=== PATIENT | female | born 1955 | race Caucasian/White ===

== ENCOUNTER → 2017-11-15 | Outpatient (CLI) | payer OTHER ==
[~2017-11-15] MED LIST: ATR10 PO; DESV50 PO; DOC100 PO; ESTR-25 PO; HYDR-2946 PO; LAMO150T36 PO; METH1TAB65 PO; ONDA4TAB PO; PER PO; PHENA200 PO; POTA20TA10 PO; PROM25S PR; TAM4 PO; TOLT4CAP13 PO; VORT10TA PO
== END ==
LOC: LAB 11:16
PROVIDERS: ATTEND Urology
DX: N39.0 Urinary tract infection, site not specified (principal); B96.89 Other specified bacterial agents as the cause of diseases classified elsewhere
CPT/HCPCS: 81001; 87077; 87088

== ENCOUNTER → 2017-11-29 | Outpatient (CLI) | payer OTHER | LOC: CT 13:38 | PROVIDERS: ATTEND Urology | DX: Z02.9 Encounter for administrative examinations, unspecified (principal) ==

== ENCOUNTER → 2017-12-01 | Outpatient (CLI) | payer OTHER ==
--- NOTE | 2017-12-01 10:04 | RADIOLOGY IMAGING REPORT ---
FACILITY: [facility] PATIENT NAME: Daiana Cortez : 1955 MR: [id number] V: [id number] EXAM DATE: ORDERING PHYSICIAN: NANCY ALMEIDA TECHNOLOGIST: Location: [facility] Patient: Daiana Cortez : 1955 Visit/Account:[id number] Date of Sevice: 12/01/2017 EXAMINATION: CT ABDOMEN AND PELVIS WITHOUT CONTRAST COMPARISON: None. HISTORY: Stones. PROCEDURE: Multiplanar noncontrast CT of the abdomen and pelvis. One of the following dose optimizati on techniques was utilized in the performance of this exam: Automated exposure control; adjustment of the mA and/or kV according to the patient's size; or use of an iterative reconstruction technique. Specific details can be referenced in the facility's radiology CT exam operational policy. FINDINGS: Evaluation of the solid and viscus parenchymal organs and vascular structures is limited wi thout the benefit of IV contrast. Visualized thorax: There are a few benign calcified granuloma in the right lower lobe. No evidence of acute disease in the visualized lower thorax. Liver: Incompletely characterized nearly isodense 2.1 x 3.5 x 2.0 cm lobular soft tissue mass along t he posterior right hepatic lobe. Gallbladder and biliary system: Cholecystectomy. Common bile duct is within normal limits. Spleen: Spleen size is normal. Pancreas: Noncontrast imaging of the pancreas is within normal limits. Adrenal glands: Negative. Kidneys and bladder: No radiopaque urolithiasis or evidence of an obstructive uropathy. Urinary bladd er is unremarkable. Vessels: Aortoiliac mild atherosclerosis. No aneurysm. Bowel and mesentery: Tiny hiatal hernia. No gastric distention. No small bowel obstruction. Appendix is within normal limits. Small amount of stool in the colon. Pancolonic mild diverticulosis. No bowel or mesenteric inflammation. Pelvic organs: Age-appropriate. Lymph nodes: No adenopathy. Free air/free fluid: None. Abdominal wall and osseous structures: Small fat-containing right inguinal hernia. Mild degenerative change throughout the osseous structures. No acute osseous abnormality. IMPRESSION: 1. No radiopaque urolithiasis or evidence of an obstructive uropathy. 2. No noncontrast CT findings of acute disease in the abdomen or pelvis. 3. Posterior right hepatic lobe incompletely characterized 2.1 x 3.5 x 2.0 cm lobular soft tissue mas s. Further evaluation by MRI with and without contrast is recommended. Report Dictated By: Nick Skinner MD at 12/01/2017 9:37 AM Report E-Signed By: Nick Skinner MD at 12/01/2017 10:00 AM WSN:[id number]
== END ==
LOC: CT 08:47
PROVIDERS: ATTEND Urology
DX: K40.90 Unilateral inguinal hernia, without obstruction or gangrene, not specified as recurrent (principal); K44.9 Diaphragmatic hernia without obstruction or gangrene; R16.0 Hepatomegaly, not elsewhere classified; I25.10 Atherosclerotic heart disease of native coronary artery without angina pectoris; Z90.49 Acquired absence of other specified parts of digestive tract; R91.8 Other nonspecific abnormal finding of lung field
CPT/HCPCS: 74176

== ENCOUNTER 2017-12-03 14:05 | Outpatient (RCR) | payer OTHER ==
--- NOTE | 2017-12-07 09:26 | RADIOLOGY IMAGING REPORT ---
FACILITY: [facility] [place] PATIENT NAME: Daiana Cortez : 1955 MR: [id number] V: [id number] EXAM DATE: ORDERING PHYSICIAN: NANCY ALMEIDA TECHNOLOGIST: [place] [facility] [place]: Daiana Cortez : 1955 Visit/Account:[id number] Date of Sevice: 12/07/2017 ABDOMEN W W/O CONTRAST HISTORY: Indeterminant hepatic mass identified at recent CT. TECHNIQUE: Multiplanar multisequence magnetic resonance imaging of the abdomen without and with intr avenous contrast. CONTRAST: 15 mL MultiHance IV COMPARISON: CT 12/01/2017, CT 05/30/2012 FINDINGS: Visualized lung bases: Negative. Liver: Along the medial margin of the posterior segment right lobe and corresponding with findings o n recent CT is a 2.2 x 3.8 cm lesion, heterogeneous and somewhat nonuniform but primarily T2 hyperint ense and T1 hypointense. Following contrast administration, this demonstrates primarily peripheral a nd slightly progressive though not classically nodular enhancement. Several small hepatic cysts. Gallbladder: Surgically absent. Bile ducts: Mild extrahepatic biliary dilatation, likely chronic status post cholecystectomy. Spleen: Negative. Adrenals: Negative. Pancreas: Negative. Kidneys/: Several subcentimeter renal cortical cysts. Visualized GI: Small sliding-type hiatal hernia. Left hemicolonic diverticula. Vessels/spaces/nodes: No bulky adenopathy. No ascites. Bones/soft tissues: Grossly unremarkable. 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 Furthermore and although not a vailable time of recent CT, a more remote prior CT from 05/2012 is now available for comparison and th is lesion appears stable to slightly decreased in size, also consistent with a benign etiology. Report Dictated By: Teofilo Nguyen MD at 12/07/2017 9:02 AM Report E-Signed By: Teofilo Nguyen MD at 12/07/2017 9:22 AM WSN:[id number]
== END 2017-12-07 18:00 | disposition home or self-care (01) ==
LOC: MRI 14:05 → EDSTATUS 12-07 14:05 → MRI 12-07 18:00
PROVIDERS: ATTEND Urology
DX: K76.89 Other specified diseases of liver (principal)
CPT/HCPCS: 36415; 74183; 82565; A9577; J7050

== ENCOUNTER → 2018-04-29 | Outpatient (CLI) | payer OTHER, MEDICARE ==
--- NOTE | 2018-04-29 15:26 | RADIOLOGY IMAGING REPORT ---
FACILITY: [facility] [place] PATIENT NAME: Daiana Cortez : 1955 MR: [id number] V: [id number] EXAM DATE: ORDERING PHYSICIAN: CHARLES DEE TECHNOLOGIST: [place] [facility] [place]iana Cortez : 1955 Visit/Account:[id number] Date of Sevice: 04/29/2018 DEXA Scan Clinical history: Postmenopausal. Comparison: DEXA scan from 05/16/2014. LUMBAR SPINE: The bone mineral density (BMD) measured from L1-L4 correlates with a Z-score of 1.5 and a T-score of 0.3 which is Normal as defined by the World Health Organization. The corresponding risk of fracture in the lumbar spine is Not increased compared with a young adult reference population. This value lynn s increased by 6.3 % since the prior study. More than 5% change is considered significant. HIP: Bone mineral density (BMD) measured in the LEFT total hip region correlates with a Z-score 0.6 and a T-score of -0.3 which is normal as defined by the World Health Organization. The corresponding risk of fracture in the hip is Not i ncreased compared to a young adult reference population. This value has decrease by 2.7 % since the p rior study. More than 5% change is considered significant. T score left femoral neck -0.9 Bone mineral density (BMD) measured in the Femoral Neck region measures 0.916 g/cm?. IMPRESSION: 1. Lumbar spine: Normal. There has been 6.3% increase in the bone mineral density since the previou s exam. 2. Left Total Hip: Normal. There has been 2.7% decrease in the bone mineral density since the previ ous exam. 3. Femoral Neck: Bone Mineral Density is 0.916 g/cm? The next DEXA scan of this patient should include the following sites: L1-L4 and the left hip. FRAX? WHO Fracture Risk Assessment Tool link: <http://www.shef.ac.uk/FRAX/tool.jsp?locationValue=9> PLEASE NOTE: 1) The World Health Organization defines low BMD as follows: T-score Normal > -1 Osteopenia < -1 and > -2.5 Osteoporosis < -2.5 without fractures Established osteoporosis < -2.5 with fractures 2) In general, you may wish to consider: Diagnosis Treatment Follow-up DEXA Normal BMD Prevention 2-3 years Osteopenia Prevention/therapy 1-2 years Osteoporosis Therapy Yearly 3) Fracture risk estimated from the T-score is more accurate for vertebral fractures (often spontane ous) than for hip fractures. Report Dictated By: Hailey Mendez MD at 04/29/2018 3:18 PM Report E-Signed By: Hailey Mendez MD at 04/29/2018 3:22 PM WSN:[id number]
--- NOTE | 2018-04-29 15:29 | RADIOLOGY IMAGING REPORT ---
FACILITY: [facility] PATIENT NAME: CHAD LARSEN : [id number] MR: [id number] V: [id number] EXAM DATE: [id number] ORDERING PHYSICIAN: CHARLES DEE TECHNOLOGIST: Amy Aquino PROCEDURE:BILATERAL DIGITAL SCREENING MAMMOGRAM WITH CAD ASSISTED INTERPRETATION & 3D TOMOSYNTHESIS COMPARISON:Prior mammograms 01/14/16, 05/16/14. INDICATIONS:screening FINDINGS: Mild to moderately heterogeneous fibroglandular tissue is seen throughout the breasts. The parenchymal pattern has remained stable allowing for difference in mammographic technique & patient positioning. There is no evidence of malignant appearing mass, malignant appearing calcifications or other secondary sign of malignancy in either breast. DIAGNOSTIC CATEGORY 1--NEGATIVE. RECOMMENDATIONS: ROUTINE MAMMOGRAM AND CLINICAL EVALUATION. IMPRESSION: BIRADS 1: Negative. No significant abnormality is seen. Dictated by: Hailey Mendez M.D. on 04/29/2018 at 15:05 Transcribed by: TEE on 04/29/2018 at 15:08 Approved by: Hailey Mendez M.D. on 04/29/2018 at 15:28 [facility]
== END ==
LOC: MAMO 02:27
PROVIDERS: ATTEND Obstetrics & Gynecology
DX: Z13.820 Encounter for screening for osteoporosis (principal); Z12.31 Encounter for screening mammogram for malignant neoplasm of breast
CPT/HCPCS: 77063; 77067; 77080

== ENCOUNTER → 2018-08-30 | Outpatient (CLI) | payer OTHER, MEDICARE ==
[~2018-08-30] MED LIST changes: +ATOR10TA24 PO; +LISI-362 PO
--- NOTE | 2018-08-30 12:41 | RADIOLOGY IMAGING REPORT ---
FACILITY: [facility] [place] PATIENT NAME: Daiana Cortez : 1955 MR: [id number] V: [id number] EXAM DATE: ORDERING PHYSICIAN: EZEQUIEL KRAMER TECHNOLOGIST: [place] [facility] [place] Daiana Cortez : 1955 Visit/Account:[id number] Date of Sevice: 08/30/2018 Study: CT scan of the paranasal sinuses Indication: Sinus pressure for one year, left ear pain, chronic sinusitis Comparison study:None Technique: Multiple axial images were obtained through the paranasal sinuses. Coronal and sagittal 2- dimensional reconstructions were made from the original data set. One of the following dose optimization techniques was utilized in the performance of this exam: Autom ated exposure control; adjustment of the mA and/or kV according to the patient's size; or use of an i terative reconstruction technique. Specific details can be referenced in the facility's radiology C T exam operational policy. Findings: Maxillary sinuses:Unremarkable Ethmoid air cells:Unremarkable Sphenoid sinus:Unremarkable Frontal sinus:Unremarkable Ostiomeatal units:Patent bilaterally Nasal septum: The bony nasal septum is mildly deviated to the left. IMPRESSION:CT scan of the paranasal sinuses demonstrating no evidence of radiographically significant abnormality. Report Dictated By: Paul Pagan at 08/30/2018 12:35 PM Report E-Signed By: Paul Pagan at 08/30/2018 12:37 PM WSN:[id number]
== END ==
LOC: CT 00:18
PROVIDERS: ATTEND Otolaryngology
DX: J32.9 Chronic sinusitis, unspecified (principal); J34.2 Deviated nasal septum
CPT/HCPCS: 70486

== ENCOUNTER 2018-09-26 00:57 | Day surgery (SDC) | payer OTHER, MEDICARE ==
[~2018-09-26] VITALS: Ht 167.6 cm; Wt 77.6 kg
[2018-09-26] VITALS (13 sets, daily range): BP systolic 116–152; BP diastolic 78–92
[2018-09-26] MEDS ORDERED: ONDANSETRON 4 MG/2 ML VIAL ONE (06:40)
[2018-09-26] MEDS ORDERED: DEXAMETHASONE SOD 4 MG/ML VIAL ONE (06:40)
[2018-09-26] MEDS ORDERED: LIDOCAINE MPF 1% 5 ML VIAL ONE (06:40)
[2018-09-26] MEDS ORDERED: PROPOFOL EMUL(*) 10MG/ML 20 ML 20 ML ONE (06:40)
[2018-09-26] MEDS ORDERED: METOCLOPRAMIDE 10 MG/2 ML SDV ONE (06:40)
[2018-09-26] MEDS ORDERED: fentaNYL CITR 100 MCG/2 ML AMP ONE ×3 (06:41→13:46)
[2018-09-26] MEDS ORDERED: ceFAZolin(*) 2GM/D5W 50ML 50 ML IVPB ONE ×3 (11:00→19:21)
[2018-09-26] MEDS ORDERED: FAMOTIDINE 20 MG TAB PO ONE (11:00)
[2018-09-26] MEDS ORDERED: MIDAZOLAM 2 MG/2 ML VIAL IVP PRN (11:00)
[2018-09-26] MEDS ORDERED: LIDOCAINE/SOD BICARB 8.4% SYR ID ONE (11:00)
[2018-09-26] MEDS ORDERED: NORMOSOL R SOLN(*) 1000 ML BAG 1,000 ML IV PRN (11:00)
[2018-09-26] MEDS ORDERED: OFLOXACIN 0.3% OP SOLN 5ML BTL ONE (12:00)
[2018-09-26] MEDS ORDERED: BACITRACIN OINT 15 GM TUBE TP ONE (12:00)
[2018-09-26] MEDS ORDERED: CIPROFLOXACIN /DEX OP 7.5 ML BTL ONE (12:00)
[2018-09-26] MEDS ORDERED: NS(*) 0.9% 250 ML BAG 250 ML ONE (12:01)
[2018-09-26] MEDS ORDERED: LIDO/EPI 1% MDV 1:100,000 20ML INFIL ONE (12:01)
[2018-09-26] MEDS ORDERED: ROCURONIUM BROM 10 MG/ML 10 ML ONE (12:28)
[2018-09-26] MEDS ORDERED: LABETALOL HCL 20 MG/4 ML SYR ONE (13:18)
[2018-09-26] MEDS ORDERED: CEFU250T11 PO (13:23)
[2018-09-26] MEDS ORDERED: HYDR-653 PO (13:24)
[2018-09-26] MEDS ORDERED: CIPDEXPT LEFT EAR (13:32)
--- NOTE | 2018-09-26 13:35 | EKG ---
FACILITY: [facility] PATIENT NAME: CHAD LARSEN : [id number] MR: [id number] V: [id number] EXAM DATE: ORDERING PHYSICIAN: JOSE WORTHY TECHNOLOGIST: EFRAIN Schmid Reason : PREOP- Blood Pressure : / mmHG Vent. Rate : 074 BPM Atrial Rate : 074 BPM P-R Int : 170 ms QRS Dur : 092 ms QT Int : 398 ms P-R-T Axes : 030 -07 038 degrees QTc Int : 441 ms Sinus rhythm with occasional premature ventricular complexes Anterior infarct , age undetermined Abnormal ECG When compared with ECG of 11.15.2015 No Confirmed by Rene Grant ([id number]) on 09/26/2018 8:45:32 PM Referred By: Confirmed By:Rene Grider
--- NOTE | 2018-09-26 13:38 | OPERATIVE REPORT 1 ---
EVENT DATE: September 26, 2018 SURGEON: Hu Ramey Jr., MD ANESTHESIOLOGIST: Robin Lin MD ANESTHESIA: LMA. OTOLARYNGOLOGY NURSE: [*] PROCEDURES PERFORMED 1. Left myringotomy and tympanostomy tube placement. 2. Septoplasty. 3. Submucous resection of bilateral inferior turbinates. 4. Bilateral lloyd bullosa resection. PREOPERATIVE DIAGNOSES 1. Left eustachian tube dysfunction. 2. Nasoseptal deviation. 3. Bilateral inferior turbinate hypertrophy. 4. Bilateral lloyd bullosa. POSTOPERATIVE DIAGNOSES 1. Left eustachian tube dysfunction. 2. Nasoseptal deviation. 3. Bilateral inferior turbinate hypertrophy. 4. Bilateral lloyd bullosa. INDICATIONS Please refer to preoperative note. DESCRIPTION OF PROCEDURE The patient was positively identified in the preoperative area. She was accompanied by her friend. Risks were again explained including, but not limited to, tympanic membrane perforation, nasoseptal perforation, bleeding, infection and those associated with anesthesia. She acknowledged understanding those risks. She was then brought back to the operative suite, placed supine on the operating table and anesthesia was then administered. Once asleep, the patient was positioned and prepped and draped in usual sterile fashion. I began with the insertion of the tympanostomy tube. A speculum was placed in the left auditory canal and the microscope was brought into place. The tympanic membrane was visualized. This was found to be retracted onto the promontory. Incision was made in the anterior inferior quadrant. I was unable to place a standard Diehl Grommet tube secondary to the tympanic membranes adherence to the promontory. Therefore, a T-tube was placed. Ciprodex drops were instilled. The patient was then repositioned for the nasal surgery. The nose was initially decongested by injecting approximately 10 cc's of 1% lidocaine with epinephrine to the bilateral anterior nasoseptal mucosa and along the face of the bilateral inferior turbinates. Both nasal cavities were subsequently packed with cottonoids containing Afrin solution. These were subsequently removed. A nasal endoscopy was performed. This was notable for severe left nasoseptal deviation. A Serg incision was made into the left anterior nasoseptal mucosa. A subperichondrial flap was elevated. Incision was then made in the anterior nasoseptal cartilage approximately 5 mm posterior to the original Serg incision. A contralateral flap was raised. The deviated portion of the patient's nasoseptal cartilage and bone was then removed. The Serg incision was reapproximated with interrupted Chromic stitch. I then addressed the bilateral lloyd bullosa. I began on the left. Approximately 0.5 cc's of 1% lidocaine with epinephrine was injected into the left middle turbinate. A stab incision was made into the turbinate and into the lloyd bullosa. An endoscopic scissor was then utilized to dissect the lateral portion of the lloyd bullosa. The contralateral lloyd bullosa was addressed in a similar fashion. I then addressed the inferior turbinates. A stab incision was made at the face of the left inferior turbinate. A caudal elevator was utilized to elevate the mucosa off the underlying bone. A submucous resection was then performed with the turbinate blade of the microdebrider. The stab incision was then cauterized with suction Bovie electrocautery. The contralateral turbinate was addressed in a similar fashion. Bilateral nasoseptal splints were then placed and secured to the columellar suture. The patient was then returned to anesthesia for emergence. ESTIMATED BLOOD LOSS 25 mL. COMPLICATIONS No complications. MTDD
== END 2018-09-26 14:23 | disposition home or self-care (01) ==
LOC: OR 00:57
PROVIDERS: ATTEND Otolaryngology
DX: H69.92 Unspecified Eustachian tube disorder, left ear (principal); J34.2 Deviated nasal septum; J34.3 Hypertrophy of nasal turbinates; J34.89 Other specified disorders of nose and nasal sinuses; I10 Essential (primary) hypertension
CPT/HCPCS: 30140; 30520; 31240; 69436; 93005; J1100; J2001; J2405; J2704; J2765; J3010; J3490; J7050; J0690

== ENCOUNTER → 2019-01-23 | Outpatient (CLI) | payer OTHER ==
[~2019-01-23] MED LIST changes: +CEFU250T11 PO; +CIPDEXPT LEFT EAR; +FLUT16SP19; +HYDR-653 PO
--- NOTE | 2019-01-23 13:45 | RADIOLOGY IMAGING REPORT ---
FACILITY: [facility] [place] PATIENT NAME: Daiana Cortez : 1955 MR: [id number] V: [id number] EXAM DATE: ORDERING PHYSICIAN: CHARLES DEE TECHNOLOGIST: Location: Patient: Daiana Cortez : 1955 Visit/Account:[id number] Date of Sevice: 01/23/2019 BRAIN W/O CONTRAST Comparisons: None. Additional pertinent history: Dizziness with left lower extremity weakness TECHNIQUE: Multiplanar, multisequence brain MRI was performed without gadolinium contrast. FINDINGS: Sagittal midline structures and craniocervical junction: Negative. Midline shift: None. Ventricles: Negative. Brain parenchyma: Diffusion weighted imaging: Negative. Gradient sequence: Negative. T2 weighted FLAIR images: Few scattered foci of abnormal increased T2 signal within the periventric ular and subcortical white matter, nonspecific but likely representing small vessel ischemic change o n a chronic basis. Extra-axial spaces: Mild cerebral atrophy. Dural venous sinuses and major arterial flow voids: Negative. Mastoid air cells and paranasal sinuses: Patchy opacification of the mastoid air cells bilaterally. Surrounding soft tissues and orbits: Negative. Impression: 1. Age related changes as described above. 2. No evidence of acute intracranial pathology. Report Dictated By: Rehan Vargas MD at 01/23/2019 1:23 PM Report E-Signed By: Rehan Vargas MD at 01/23/2019 1:26 PM WSN:[id number]
--- NOTE | 2019-01-23 15:15 | RADIOLOGY IMAGING REPORT ---
FACILITY: [facility] PATIENT NAME: Daiana Cortez : 1955 MR: [id number] V: [id number] EXAM DATE: ORDERING PHYSICIAN: CHARLES DEE TECHNOLOGIST: Location: [facility] [place] Patient: Daiana Cortez : 1955 Visit/Account:[id number] Date of Sevice: 01/23/2019 CAROTID HISTORY: Dizziness, left-sided weakness COMPARISON: None. FINDINGS: Grayscale, duplex and color Doppler interrogation of the extracranial carotid and vertebral arteries was performed bilateral. On the right, peak systolic velocities within the common and internal carotid arteries are 149 and 11 4 cm/sec respectively. There is mild calcified plaque present involving the carotid bulb. Doppler w aveforms are within normal limits.. Antegrade flow within the common, internal and external carotid arteries as well as vertebral artery. ICA/CCA ratio 0.8. On the left, peak systolic velocities within the common and internal carotid arteries are 171 and 80 cm/sec respectively. Mild calcified plaque formation is noted carotid bulb. Doppler waveforms are w ithin normal limits.. Antegrade flow within the common, internal and external carotid arteries as we ll as vertebral artery. ICA/CCA ratio 0.5. IMPRESSION: Mild bilateral plaque is present at the carotid bulbs. Findings are consistent with less than 50% st enosis. Elevated velocities noted throughout the common carotid arterial system suggestive of hypertension. Velocity criteria are extrapolated from diameter data as defined by the Society of Radiologists in [facility] Consensus Conference Radiology 2003; 229;340-346 Report Dictated By: Ishmael Mcneil at 01/23/2019 3:07 PM Report E-Signed By: Ishmael Mcneil at 01/23/2019 3:11 PM WSN:[id number]
== END ==
LOC: MRI 01:02
PROVIDERS: ATTEND Obstetrics & Gynecology
DX: I65.23 Occlusion and stenosis of bilateral carotid arteries (principal)
CPT/HCPCS: 70551; 93880

== ENCOUNTER → 2019-01-24 | Outpatient (CLI) | payer OTHER | LOC: AUD 14:00 | PROVIDERS: ATTEND Physician Assistant | DX: H65.22 Chronic serous otitis media, left ear (principal); H65.32 Chronic mucoid otitis media, left ear | CPT/HCPCS: 92553; 92567 ==

== ENCOUNTER 2019-03-13 13:39 | Emergency (ER) | payer OTHER ==
[~2019-03-13 13:39] MED LIST changes: +OFLO5DRO41 LEFT EAR
--- NOTE | 2019-03-13 13:58 | ER Report ---
History and Physical Time Seen By MD: 13:40 Hx. of Stated Complaint: RIGHT HAND, ARM AND FACIAL NUMBNESS SINCE 929 HPI/ROS CHIEF COMPLAINT: Hand weakness and numbness HISTORY OF PRESENT ILLNESS: 64-year-old female presents with hand weakness and numbness that has been ongoing since 9:30. 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 She complains of weakness specifically in the index and middle right finger as well as weakness in the thumb abduction. Patient has numbness radiating from these fingers up to her lateral elbow. This numbness comes and goes. Patient also notes that she has numbness on her face. This starts on her left forehead, spreads to her right forehead and down the side of her face. This has been ongoing intermittently since an ENT surgery in September. Pt also notes other ongoing paresthesias; currently left lower lateral leg, that preceded today's symptoms, and intermitt ently down left arm. She had an MRI on january 26 that was reported as normal. She has htn, hchol (though only intermittently takes lipitor), and depression She is not currently taking other supplements. REVIEW OF SYSTEMS: Constitutional: No fever, no chills. Eyes: no blurred vision, floaters, visual loss ENT: No sore throat, no difficulty swallowing Cardiovascular: No chest pain, no palpitations. Respiratory: No cough, no shortness of breath. Gastrointestinal: No abdominal pain, no vomiting. Genitourinary: no dysuria Musculoskeletal: No back pain. Skin: No rashes. Neurological: No headache. Remainder of the 14 system rev: Yes Allergies: Coded Allergies: No Known Drug Allergies (Unverified , 03/13/19) Home Meds Active Scripts Fluticasone Prop 50 Mcg Ns (FLONASE 50 MCG NS) 16 Gm [place].susp, 2 SPRAYS NA QDAY for 30 Days, #1 BOT 3 Refills Prov:EZEQUIEL KRAMER JR, MD 02/15/19 Ofloxacin (Ofloxacin) 0.3 % Drops, 4 DROP LEFT EAR BID for 3 Days, #1 BOT Prov:EZEQUIEL KRAMER JR, MD 02/01/19 Reported Medications Lisinopril (LISINOPRIL) 10 Mg Tablet, 10 MG PO QDAY, TAB 08/08/18 Vortioxetine Hydrobromide (Brintellix) 10 Mg Tablet, 10 MG PO DAILY 05/10/14 Estrogen,Con/M-Progest Acet (Prempro 0.3 Mg/1.5 Mg Tablet) 1 Tab Tablet, 1 TAB PO QDAY 05/30/12 Discontinued Reported Medications Atorvastatin Calcium (LIPITOR) 10 Mg Tablet, 1 TAB PO QDAY, TAB 08/08/18 Reviewed Nurses Notes: Yes Old Medical Records Reviewed: Yes Hx Smoking: No Smoking Status: Never Smoker Hx Substance Use Disorder: No Hx Alcohol Use: Yes Constitutional Vital Sign - Last 24 Hours 03/13/19 03/13/19 03/13/19 03/13/19 13:46 14:00 14:30 15:00 Pulse 90 83 78 78 Resp 20 14 11 B/P (MAP) 167/107 169/102 (124) 132/91 (105) 134/93 (107) Pulse Ox 94 95 92 92 O2 Delivery Room Air 03/13/19 03/13/19 03/13/19 03/13/19 15:30 16:00 16:30 17:00 Pulse 77 83 82 81 Resp 13 14 16 21 B/P (MAP) 147/83 (104) 135/83 (100) 137/92 (107) 137/92 (107) Pulse Ox 92 95 93 94 03/13/19 17:30 Pulse 82 Resp 16 B/P (MAP) 143/84 (103) Pulse Ox 93 Physical Exam General Appearance: The patient is alert, has no immediate need for airway protection and no signs of toxicity. Eyes: Pupils equal and round no pallor or injection. ENT, Mouth: Mucous membranes are moist. Respiratory: There are no retractions, lungs are clear to auscultation. Cardiovascular: Regular rate and rhythm. no m/r/g Gastrointestinal: Abdomen is soft and non tender, no masses, bowel sounds normal. Neurological: NIHSS = 0; pt has decreased lt touch right lateral forearm, left lower leg. She has 4/5 flexion right index, middle finger, nl lt touch sensation, 3/5 adduction right index, middle finger, thumb. 4/5 abduction right index, middle, thumb. 5/5 extension in fingers, wrist, elbow. Negative phalen's, tinel's testing Skin: Warm and dry, no rashes. Musculoskeletal: Extremities are nontender, nonswollen and have full range of motion. DIFFERENTIAL DIAGNOSIS: After history and physical exam differential diagnosis was considered for cva, peripheral nerve compression, atypical presentation of aortic dissection, acs, or other emergent etiology. Medical Decision Making Data Points Result Diagram: 03/13/19 1349 03/13/19 1349 Laboratory Hematology Test 03/13/19 13:49 03/13/19 17:34 Red Blood Count 4.60 M/uL (4.17-5.56) Mean Corpuscular Volume 86.0 fL (80.0-96.0) Mean Corpuscular Hemoglobin 30.0 pg (26.0-33.0) Mean Corpuscular Hemoglobin Concent 34.9 g/dL (32.0-36.0) Red Cell Distribution Width 14.7 % (11.5-14.5) Mean Platelet Volume 7.9 fL (7.2-11.1) Neutrophils (%) (Auto) 54.5 % (39.4-72.5) Lymphocytes (%) (Auto) 38.5 % (17.6-49.6) Monocytes (%) (Auto) 5.0 % (4.1-12.4) Eosinophils (%) (Auto) 1.3 % (0.4-6.7) Basophils (%) (Auto) 0.7 % (0.3-1.4) Nucleated RBC Relative Count (auto) 0.0 /100WBC Neutrophils # (Auto) 5.3 K/uL (2.0-7.4) Lymphocytes # (Auto) 3.7 K/uL (1.3-3.6) Monocytes # (Auto) 0.5 K/uL (0.3-1.0) Eosinophils # (Auto) 0.1 K/uL (0.0-0.5) Basophils # (Auto) 0.1 K/uL (0.0-0.1) Nucleated RBC Absolute Count (auto) 0.00 K/uL Prothrombin Time 12.5 seconds (12.0-14.4) Prothromb Time International Ratio 0.94 Activated Partial Thromboplast Time 27 seconds (23-35) Sodium Level 139 mmol/L (137-145) Potassium Level 3.7 mmol/L (3.5-5.0) Chloride Level 106 mmol/L (98-107) Carbon Dioxide Level 22 mmol/L (22-31) Blood Urea Nitrogen 18 mg/dl (7-18) Creatinine 0.80 mg/dl (0.52-1.04) Glomerular Filtration Rate Calc > 60.0 Whole Blood Glucose 90 mg/DL (75-110) Random Glucose 101 mg/dl (75-110) Calcium Level 10.0 mg/dl (8.4-10.2) Phosphorus Level 3.9 mg/dl (2.5-4.5) Total Bilirubin 1.0 mg/dl (0.2-1.3) Aspartate Amino Transf (AST/SGOT) 24 U/L (0-35) Alanine Aminotransferase (ALT/SGPT) 38 U/L (0-56) Alkaline Phosphatase 115 U/L (0-126) Total Protein 7.5 g/dl (6.3-8.2) Albumin 4.5 g/dl (3.5-5.0) Troponin I < 0.012 ng/ml Chemistry Test 03/13/19 13:49 03/13/19 17:34 White Blood Count 9.7 k/uL (4.5-11.0) Red Blood Count 4.60 M/uL (4.17-5.56) Hemoglobin 13.8 g/dL (12.0-16.0) Hematocrit 39.6 % (34.0-47.0) Mean Corpuscular Volume 86.0 fL (80.0-96.0) Mean Corpuscular Hemoglobin 30.0 pg (26.0-33.0) Mean Corpuscular Hemoglobin Concent 34.9 g/dL (32.0-36.0) Red Cell Distribution Width 14.7 % (11.5-14.5) Platelet Count 384 K/uL (150-450) Mean Platelet Volume 7.9 fL (7.2-11.1) Neutrophils (%) (Auto) 54.5 % (39.4-72.5) Lymphocytes (%) (Auto) 38.5 % (17.6-49.6) Monocytes (%) (Auto) 5.0 % (4.1-12.4) Eosinophils (%) (Auto) 1.3 % (0.4-6.7) Basophils (%) (Auto) 0.7 % (0.3-1.4) Nucleated RBC Relative Count (auto) 0.0 /100WBC Neutrophils # (Auto) 5.3 K/uL (2.0-7.4) Lymphocytes # (Auto) 3.7 K/uL (1.3-3.6) Monocytes # (Auto) 0.5 K/uL (0.3-1.0) Eosinophils # (Auto) 0.1 K/uL (0.0-0.5) Basophils # (Auto) 0.1 K/uL (0.0-0.1) Nucleated RBC Absolute Count (auto) 0.00 K/uL Prothrombin Time 12.5 seconds (12.0-14.4) Prothromb Time International Ratio 0.94 Activated Partial Thromboplast Time 27 seconds (23-35) Glomerular Filtration Rate Calc > 60.0 Whole Blood Glucose 90 mg/DL (75-110) Calcium Level 10.0 mg/dl (8.4-10.2) Phosphorus Level 3.9 mg/dl (2.5-4.5) Total Bilirubin 1.0 mg/dl (0.2-1.3) Aspartate Amino Transf (AST/SGOT) 24 U/L (0-35) Alanine Aminotransferase (ALT/SGPT) 38 U/L (0-56) Alkaline Phosphatase 115 U/L (0-126) Total Protein 7.5 g/dl (6.3-8.2) Albumin 4.5 g/dl (3.5-5.0) Troponin I < 0.012 ng/ml Coagulation Test 03/13/19 13:49 Prothrombin Time 12.5 seconds Prothromb Time International Ratio 0.94 Activated Partial Thromboplast Time 27 seconds EKG/Imaging EKG Interpretation 12 lead EKG: Rhythm: normal sinus rhythm [place]: left QRS: LBBB ST segments: consistent with LBBB, neg sgarbossa Pt has new LBBB not noted on prior ekg's. Monitor Interpretation: Normal Sinus Rhythm ED Course/Re-evaluation ED Course 64 f presents with new weakness/numbness right fingers. Code neuro called; NIHSS 0; neurologist evaluates via telestroke while I was present. She states this is not assoc with brain lesion and recommends outpt peripheral nerve evaluation. Pt is amenable to this plan. On reassessment, pt's symptoms improve and strength returns spontaneously to baseline. Of note, her ekg now shows LBBB that is new. I discussed this with pt; her symptoms would be extremely atypical for acs, so we elected to repeat trop to r/o mi; second trop neg; at this time it is reasonable to d/c with pcm f/u, plan for stress test, neurology f/u and further evaluation. Pt comfortable on d/c and understands strict return precautions. Decision to Disposition Date: Mar 13, 2019 Decision to Disposition Time: 17:45 Depart Departure Latest Vital Signs Vital Signs Date Time Temp Pulse Resp B/P (MAP) Pulse Ox O2 Delivery O2 Flow Rate FiO2 03/13/19 17:30 82 16 143/84 (103) 93 03/13/19 13:46 Room Air Impression: Primary Impression: Peripheral neuropathy Additional Impression: Left bundle branch block Condition: Improved Disposition: HOME OR SELF-CARE Referrals: CHARLES DEE MD (PCP) 5 Days Patient Instructions: Peripheral Neuropathy (ED) Additional Instructions: As we discussed, call your primary doctor this week to arrange follow up for further evaluation, repeat ekg as your ekg was abnormal, for determination of need for stress testing, and for neurology referral as needed. Return immediately for new or concerning numbness or weakness. Problem Qualifiers Primary Impression: Peripheral neuropathy Peripheral neuropathy type: mononeuropathy, unspecified Qualified Codes: G58.9 - Mononeuropathy, unspecified WILL ORTIZ MD Mar 13, 2019 13:58
[2019-03-13 14:06] LABS: PLATELET COUNT, AUTOMATED 384 K/uL (150-450)
--- NOTE | 2019-03-13 14:11 | EKG ---
FACILITY: [facility] PATIENT NAME: CHAD LARSEN : [id number] MR: [id number] V: [id number] EXAM DATE: ORDERING PHYSICIAN: WILL ORTIZ TECHNOLOGIST: EFRAIN Schmid Reason : TIA Blood Pressure : / mmHG Vent. Rate : 081 BPM Atrial Rate : 081 BPM P-R Int : 186 ms QRS Dur : 134 ms QT Int : 420 ms P-R-T Axes : 034 -26 099 degrees QTc Int : 487 ms Normal sinus rhythm Left bundle branch block Abnormal ECG When compared with ECG of 26-SEP-2018 10:59, premature ventricular complexes are no longer present Left bundle branch block is now present Criteria for Anterior infarct are no longer present Confirmed by SARITA MANDUJANO ([id number]) on 03/14/2019 6:24:04 AM Referred By: DIANA Confirmed By:SARITA MANDUJANO
[2019-03-13 14:13] LABS: INR 0.94
--- NOTE | 2019-03-13 14:18 | RADIOLOGY IMAGING REPORT ---
FACILITY: [facility] [place] PATIENT NAME: Daiana Cortez : 1955 MR: [id number] V: [id number] EXAM DATE: ORDERING PHYSICIAN: WILL ORTIZ TECHNOLOGIST: Location: [facility] [place] Patient: Daiana Cortez : 1955 Visit/Account:[id number] Date of Sevice: 03/13/2019 EXAMINATION: Head CT without intravenous contrast HISTORY: Right-sided numbness. Stroke alert. COMPARISON: MRI of the brain from 01/23/2019. TECHNIQUE: Contiguous axial images were obtained from the skull base to the vertex without intraven ous contrast. Sagittal and coronal reformatted images are also submitted. One of the following dose optimization techniques was utilized in the performance of this exam: Autom ated exposure control; adjustment of the mA and/or kV according to the patient's size; or use of an i terative reconstruction technique. Specific details can be referenced in the facility's radiology C T exam operational policy. FINDINGS: Brain and intracranial structures: Ventricles, sulci, and cisterns are normal in size. Miller-white ma tter differentiation is maintained. No midline shift, acute hemorrhage, mass, or evidence of acute infarct. Vessels: Mild calcification of the carotid siphons and intracranial segment of the right vertebral ar shilpa. Calvarium / scalp: Negative. Skull base / visualized face: Slight rightward deviation of the upper nasal septum. Visualized sinuses / orbits: The lenses have been replaced. IMPRESSION: No acute intracranial hemorrhage or evidence of acute infarct. These findings were discussed with WILL ORTIZ at 03/13/2019 2:11 PM. Report Dictated By: Bobby Hutton MD at 03/13/2019 2:07 PM Report E-Signed By: Bobby Hutton MD at 03/13/2019 2:13 PM WSN:[id number]
--- NOTE | 2019-03-13 14:19 | RADIOLOGY IMAGING REPORT ---
FACILITY: [facility] [place] PATIENT NAME: Daiana Cortez : 1955 MR: [id number] V: [id number] EXAM DATE: ORDERING PHYSICIAN: WILL ORTIZ TECHNOLOGIST: Location: [facility] [place] Patient: Daiana Cortez : 1955 Visit/Account:[id number] Date of Sevice: 03/13/2019 CHEST SINGLE AP INDICATION: Shortness of breath COMPARISON: 09/10/2014 FINDINGS: Heart size within normal limits. There is increased pulmonary vascular congestion present . Left lower lobe atelectasis versus infiltrate is present. There is no pneumothorax or pleural effusion. IMPRESSION: 1. Left lower lobe atelectasis versus infiltrate 2. Mild pulmonary vascular congestion Report Dictated By: Ishmael Mcneil at 03/13/2019 2:11 PM Report E-Signed By: Ishmael Mcneil at 03/13/2019 2:13 PM WSN:[id number]
--- NOTE | 2019-03-13 16:02 | RADIOLOGY IMAGING REPORT ---
FACILITY: [facility] PATIENT NAME: Daiana Cortez : 1955 MR: [id number] V: [id number] EXAM DATE: ORDERING PHYSICIAN: WILL ORTIZ TECHNOLOGIST: Location: [facility] Patient: Daiana Cortez : 1955 Visit/Account:[id number] Date of Sevice: 03/13/2019 CHEST PA LAT Indication: dyspnea, poor insp effort on single pa Comparison: Chest x-ray 03/13/2019. Findings: Lungs: Clear. Mediastinum/pulmonary vasculature: Heart size and pulmonary vasculature are normal. Bones/soft tissues: Normal. IMPRESSION: Clear lungs. Report Dictated By: Derrick Pearson at 03/13/2019 3:56 PM Report E-Signed By: Derrick Pearson at 03/13/2019 3:56 PM WSN:[id number]
[2019-03-13 17:30] VITALS: BP 143/84
== END 2019-03-13 18:20 | disposition home or self-care (01) ==
LOC: ER 13:44
DX: G58.9 Mononeuropathy, unspecified (principal); I44.7 Left bundle-branch block, unspecified
CPT/HCPCS: 36415; 36416; 70450; 71045; 71046; 82040; 82247; 82310; 82330; 82374; 82435; 82565; 82947; 82948; 84075; 84100; 84132; 84155; 84295; 84450; 84460; 84484; 84520; 85025; 85610; 85730; 93005; 99284

== ENCOUNTER 2019-04-24 02:23 | Day surgery (SDC) | payer OTHER ==
[~2019-04-24] VITALS: Ht 167.6 cm; Wt 78.0 kg
[2019-04-24] MEDS ORDERED: fentaNYL CITR 100 MCG/2 ML AMP ONE (08:51)
[2019-04-24] MEDS ORDERED: LIDOCAINE 2% IV 100 MG/5ML SYR ONE (08:51)
[2019-04-24 09:15] VITALS: BP 161/87
[2019-04-24] MEDS ORDERED: FAMOTIDINE 20 MG TAB PO ONE (09:25)
[2019-04-24] MEDS ORDERED: LIDOCAINE/SOD BICARB 8.4% SYR ID ONE (09:25)
[2019-04-24] MEDS ORDERED: NORMOSOL R SOLN(*) 1000 ML BAG 1,000 ML IV PRN (09:25)
[2019-04-24] MEDS ORDERED: MIDAZOLAM 2 MG/2 ML VIAL IVP PRN (09:25)
[2019-04-24] MEDS ORDERED: OXYMETAZOLINE SPRAY 15 ML BTL ONE (10:01)
[2019-04-24] MEDS ORDERED: OFLOXACIN 0.3% OP SOLN 5ML BTL ONE (10:01)
[2019-04-24] MEDS ORDERED: ONDANSETRON 4 MG/2 ML VIAL ONE (10:37)
[2019-04-24] MEDS ORDERED: DEXAMETHASONE SOD PHOS 10MG/ML ONE (10:37)
--- NOTE | 2019-04-24 10:59 | OPERATIVE REPORT 1 ---
EVENT DATE: April 24, 2019 SURGEON: Hu Ramey MD ANESTHESIOLOGIST: Placido Hannon MD ANESTHESIA: LMA. PREOPERATIVE DIAGNOSIS Bilateral eustachian tube dysfunction. POSTOPERATIVE DIAGNOSIS Bilateral eustachian tube dysfunction. PROCEDURES PERFORMED 1. Bilateral myringotomies and insertion of tympanostomy tubes. 2. Nasopharyngoscopy with dilation of bilateral eustachian tubes. INDICATIONS Please refer to preoperative note. DESCRIPTION OF PROCEDURE The patient was positively identified in the preoperative area. She was there alone. Risks were again explained including, but not limited to, tympanic membrane perforation, injury to the carotid artery and those associated with anesthesia. She acknowledged understanding those risks. She was then brought back to the operative suite, laid supine on the operative table and anesthesia was administered. Once asleep, the patient was positioned and prepped and draped in usual sterile fashion. We began with the insertion of the tympanostomy tubes. We began on the left side. A speculum was placed. The tympanic membrane was visualized. An Diehl Grommet tube was present in the posterior inferior quadrant. This was carefully immobilized with a pick and removed with an Alligator forceps. A T-tube was placed through the fenestration and positioned into place. Floxin drops were instilled. I then proceeded with the contralateral ear. In a similar fashion, the speculum was placed. Tympanic membrane was visualized. Myringotomy was made in the posterior inferior quadrant. A T-tube was placed through the myringotomy and positioned place. Floxin drops were instilled. We then proceeded with eustachian tube dilation. Both nasal cavities were initially packed with cottonoids containing Afrin solution. These were subsequently removed and nasopharyngoscopy was performed. A dilation balloon was carefully placed into the eustachian tube orifice on the right side and advanced. The balloon was inflated for two minutes and removed. The contralateral eustachian tube was dilated in a similar fashion. The patient was then turned to Anesthesia for emergence. ESTIMATED BLOOD LOSS Negligible. COMPLICATIONS No complications. MTDD
[2019-04-24] MEDS ORDERED: OFLO5DRO45 EACH EAR (11:03)
[2019-04-24 11:28] VITALS: BP 139/93
[2019-04-24 12:09] VITALS: BP 140/89
[2019-04-24 12:10] VITALS: BP 150/90
[2019-04-24] MEDS ORDERED: AMOX-559 PO (16:54)
== END 2019-04-24 11:28 | disposition home or self-care (01) ==
LOC: OR 02:23
PROVIDERS: ATTEND Otolaryngology
DX: H69.83 Other specified disorders of Eustachian tube, bilateral (principal)
CPT/HCPCS: 69436; C9745; J1100; J2001; J2405; J3010

== ENCOUNTER → 2019-05-02 | Outpatient (CLI) | payer OTHER ==
[~2019-05-02] MED LIST changes: +AMOX-559 PO; +OFLO5DRO45 EACH EAR
--- NOTE | 2019-05-02 11:49 | RADIOLOGY IMAGING REPORT ---
[facility] PATIENT NAME: Daiana Cortez : 1955 MR: [id number] V: [id number] EXAM DATE: ORDERING PHYSICIAN: BLAS ISRAEL TECHNOLOGIST: Location: [facility] [place] Patient: Daiana Cortez : 1955 Visit/Account:[id number] Date of Sevice: 05/02/2019 EXAMINATION: MRI Cervical spine without intravenous contrast HISTORY: Right upper extremity numbness and weakness. COMPARISON: None available. TECHNIQUE: Multi-planar, multi-sequence cervical spine MRI was performed without intravenous contras t administration. FINDINGS: Alignment: Straightening and slight reversal of the normal lordosis. Vertebral marrow signal: Minimal discogenic bone marrow edema at C5-C6 and C6-C7. Cranio-cervical junction: Mild degenerative changes with normal alignment. Visualized posterior fossa: Negative. Soft tissues: Negative. Cervical cord: Negative. Disc Spaces: C1-2: No significant stenosis. C2-3: Small central disc protrusion. Mild facet hypertrophy and ligamentum flavum thickening. No si gnificant spinal canal or right neural foraminal stenosis. Mild left neural foraminal stenosis. C3-4: Moderate disc height loss with mild circumferential disc osteophyte complex and facet hypertrop hy. No significant spinal canal stenosis. Mild right and moderate left neural foraminal stenosis. C4-5: Moderate disc height loss with mild circumferential disc osteophyte complex. Moderate to sever e left facet hypertrophy. No significant spinal canal stenosis. Mild right and moderate left neural foraminal stenosis. C5-6: Severe disc height loss with circumferential disc osteophyte complex. No significant spinal ca nal stenosis. Moderate right and moderately severe left neural foraminal stenosis. C6-7: Severe disc height loss with circumferential disc osteophyte complex and mild facet hypertrophy . Mild ligamentum flavum thickening. No significant spinal canal stenosis. Moderate bilateral neur al foraminal stenosis. C7-T1: Minimal disc bulge and facet hypertrophy with no significant stenosis. Upper thoracic spine: Mild degenerative changes with mild neural foraminal stenosis. IMPRESSION: Multilevel degenerative disc disease and facet hypertrophy. Report Dictated By: Calvin Kolb MD at 05/02/2019 11:30 AM Report E-Signed By: Calvin Kolb MD at 05/02/2019 11:41 AM WSN:[id number]
== END ==
LOC: MRI 00:57
PROVIDERS: ATTEND Psychiatry & Neurology Neurology
DX: M50.30 Other cervical disc degeneration, unspecified cervical region (principal); M53.82 Other specified dorsopathies, cervical region
CPT/HCPCS: 72141